=== PATIENT | female | born 2000 | race Caucasian/White ===

== ENCOUNTER 2020-10-04 17:34 | Emergency (ER) | payer OTHER ==
[2020-10-04 17:47] VITALS: BMI 23.4
[2020-10-04] MEDS ORDERED: ACETAMINOPHEN 1000 MG/100 ML BAG IVPB ONE (18:50)
[2020-10-04] MEDS ORDERED: SODIUM CHLORIDE 1,000 ML IV STA (18:50)
[2020-10-04] MEDS ORDERED: ACETAMINOPHEN INJECTION 100 ML IVPB ONE (19:26)
[2020-10-04 19:48] VITALS: TEMP 98.9
[2020-10-04 20:03] LABS: BASO % 0.2 % (0-2.0); EOS % 0.7 % (0-4.5); HEMATOCRIT 38.8 % (32.4-45.2); HEMOGLOBIN 13.4 GM/dL (10.7-15.3); LYMPH % 32.7 % (8-40); MCH 30.9 pg (25.7-33.7); MCHC 34.5 g/dl (32.0-36.0); MEAN CELL VOLUME 89.5 fl (80-96); MEAN PLT VOLUME 9.3 fl (7.5-11.1); MONO % 6.9 % (3.8-10.2); NEUT % 59.5 % (42.8-82.8); PLATELET COUNT 193 K/MM3 (134-434); RBC 4.33 M/mm3 (3.60-5.2); RDW 12.4 % (11.6-15.6)
[2020-10-04 20:26] LABS: PH,URINE >= 9.0 (5.0-8.0); URINE APPEARANCE CLOUDY; URINE BILIRUBIN NEGATIVE (NEGATIVE); URINE COLOR YELLOW; URINE GLUCOSE (UA) NEGATIVE (NEGATIVE); URINE KETONE NEGATIVE (NEGATIVE); URINE LEUK ESTERASE NEGATIVE (NEGATIVE); URINE NITRITE NEGATIVE (NEGATIVE); URINE PROTEIN NEGATIVE (NEGATIVE)
[2020-10-04 20:33] LABS: ALBUMIN 3.9 g/dl (3.4-5.0); BLOOD UREA NITROGEN 10.2 mg/dL (7-18); CALCIUM 8.8 mg/dL (8.5-10.1)
[2020-10-04 20:36] LABS: HCG,QUALITATIVE URINE Negative
[2020-10-04 20:37] LABS: BILIRUBIN,TOTAL 0.8 mg/dL (0.2-1); CREATININE 0.7 mg/dL (0.55-1.3); TOT PROT 7.1 g/dl (6.4-8.2)
[2020-10-04 22:31] VITALS: BP 98/64; PULSE 81
== END 2020-10-04 22:32 | disposition home or self-care (01) ==
LOC: JER 17:34
PROC: 3E033GC Introduction of Other Therapeutic Substance into Peripheral Vein, Percutaneous Approach (ICD-10-PCS; principal; 2020-10-04)
PROC: 3E0337Z Introduction of Electrolytic and Water Balance Substance into Peripheral Vein, Percutaneous Approach (ICD-10-PCS; principal; 2020-10-04)
DX: N83.201 Unspecified ovarian cyst, right side (principal)
CPT/HCPCS: 36415; 74177-TC; 80053; 81003; 84703; 85025; 87086; 99285-25; J0131; Q9967

== ENCOUNTER 2020-10-15 10:08 | Emergency (ER) | payer OTHER ==
[2020-10-15 10:18] VITALS: BP 103/77; PULSE 99; TEMP 98; BMI 23.4
[2020-10-15 10:57] LABS: BASO % 0.3 % (0-2.0); EOS % 0.5 % (0-4.5); HEMATOCRIT 40.2 % (32.4-45.2); HEMOGLOBIN 13.8 GM/dL (10.7-15.3); LYMPH % 24.9 % (8-40); MCH 31.2 pg (25.7-33.7); MCHC 34.3 g/dl (32.0-36.0); MEAN CELL VOLUME 90.9 fl (80-96); MEAN PLT VOLUME 9.6 fl (7.5-11.1); NEUT % 68.3 % (42.8-82.8); PLATELET COUNT 185 K/MM3 (134-434); RBC 4.42 M/mm3 (3.60-5.2); WHITE BLOOD COUNT 7.8 K/mm3 (4.0-10.0)
[2020-10-15 11:20] LABS: INR 1.05 (0.83-1.09); PROTHROMBIN TIME (PATIENT) 12.9 SEC (9.7-13.0)
== END 2020-10-15 11:35 | disposition home or self-care (01) ==
LOC: JER 10:08
DX: K62.5 Hemorrhage of anus and rectum (principal)
CPT/HCPCS: 36415; 82272; 85025; 85610; 85730; 99283-25

== ENCOUNTER 2021-02-19 09:34 | Emergency (ER) | payer OTHER ==
[2021-02-19 09:49] VITALS: BP 103/67; PULSE 104; TEMP 98.1; BMI 22.6
== END 2021-02-19 10:12 | disposition home or self-care (01) ==
LOC: JERFT 09:34
DX: B00.1 Herpesviral vesicular dermatitis (principal)
CPT/HCPCS: 99283-25

== ENCOUNTER 2021-05-17 00:53 | Emergency (ER) | payer OTHER ==
[2021-05-17 01:02] VITALS: TEMP 98.1; BMI 23.2
[2021-05-17] MEDS ORDERED: ONDANSETRON 4 MG/2 ML VIAL IVPUSH ONE (01:29)
[2021-05-17] MEDS ORDERED: FAMOTIDINE 20 MG/50 ML IVPB 20 MG/50 ML MG IVPB ONE ×2 (01:29→01:32)
[2021-05-17] MEDS ORDERED: SODIUM CHLORIDE 0.9% 500 ML INFUS.BAG IV ONE (01:29)
[2021-05-17] MEDS ORDERED: ONDANSETRON 4 MG/2 ML VIAL ONE (01:32)
[2021-05-17 01:55] LABS: BASO % 0.3 % (0-2.0); EOS % 0.8 % (0-4.5); HEMATOCRIT 39.3 % (32.4-45.2); HEMOGLOBIN 13.5 GM/dL (10.7-15.3); LYMPH % 13.8 % (8-40); MCH 30.7 pg (25.7-33.7); MCHC 34.4 g/dl (32.0-36.0); MEAN CELL VOLUME 89.3 fl (80-96); MEAN PLT VOLUME 9.1 fl (7.5-11.1); MONO % 4.6 % (3.8-10.2); NEUT % 80.5 % (42.8-82.8); PLATELET COUNT 170 10^3/uL (134-434); RDW 12.7 % (11.6-15.6); WHITE BLOOD COUNT 8.1 K/mm3 (4.0-10.0)
[2021-05-17 01:59] LABS: EPI CELLS 4 /uL (0-25.1); HYALINE CASTS 0 /uL (0-3.1); URINE APPEARANCE CLOUDY; URINE BACTERIA 85 /uL (0-1359); URINE BILIRUBIN NEGATIVE (NEGATIVE); URINE COLOR YELLOW; URINE GLUCOSE (UA) NEGATIVE (NEGATIVE); URINE KETONE NEGATIVE (NEGATIVE); URINE LEUK ESTERASE NEGATIVE (NEGATIVE); URINE NITRITE NEGATIVE (NEGATIVE); URINE PROTEIN NEGATIVE (NEGATIVE); URINE RBC 13 /uL (0-23.9); URINE UROBILINOGEN 0.2 mg/dL (0.2-1.0); URINE WBC 3 /uL (0-25.8)
[2021-05-17 02:17] LABS: ALBUMIN 3.4 g/dl (3.4-5.0); BLOOD UREA NITROGEN 14.6 mg/dL (7-18); CALCIUM 8.8 mg/dL (8.5-10.1)
[2021-05-17 02:21] LABS: CREATININE 0.8 mg/dL (0.55-1.3)
[2021-05-17 02:22] LABS: BILIRUBIN,TOTAL 0.8 mg/dL (0.2-1); TOT PROT 6.9 g/dl (6.4-8.2)
[2021-05-17 02:58] VITALS: BP 100/71; PULSE 89
== END 2021-05-17 03:16 | disposition home or self-care (01) ==
LOC: JER 00:53
PROC: 3E033NZ Introduction of Analgesics, Hypnotics, Sedatives into Peripheral Vein, Percutaneous Approach (ICD-10-PCS; principal; 2021-05-17)
PROC: 3E033GC Introduction of Other Therapeutic Substance into Peripheral Vein, Percutaneous Approach (ICD-10-PCS; 2021-05-17)
DX: R11.10 Vomiting, unspecified (principal); R19.7 Diarrhea, unspecified
CPT/HCPCS: 36415; 80053; 81003; 84703; 85025; 87086; 99284-25; C9803; U0003; U0005

== ENCOUNTER 2021-07-19 08:40 | Emergency (ER) | payer OTHER ==
[2021-07-19 09:31] VITALS: BP 104/60; PULSE 110; TEMP 98.5; BMI 23.2
[2021-07-19] MEDS ORDERED: SODIUM CHLORIDE 1,000 ML IV STA (09:48)
[2021-07-19] MEDS ORDERED: FAMOTIDINE 20 MG/50 ML IVPB 20 MG/50 ML MG IVPB ONE ×2 (09:48→09:57)
[2021-07-19] MEDS ORDERED: METOCLOPRAMIDE HCL INJECTION 10 MG/2 ML VIAL IVPB ONE (09:48)
[2021-07-19] MEDS ORDERED: MAG HYDROX/AL HYDROX/SIMETH 30 ML UNIT-DOSE CUP PO ONE (09:48)
[2021-07-19] MEDS ORDERED: METOCLOPRAMIDE HCL INJECTION 10 MG/2 ML VIAL ONE (09:59)
[2021-07-19] MEDS ORDERED: MAG HYDROX/AL HYDROX/SIMETH 30 ML UNIT-DOSE CUP ONE (09:59)
[2021-07-19 10:31] LABS: BASO % 0.2 % (0-2.0); HEMATOCRIT 43.1 % (32.4-45.2); HEMOGLOBIN 14.5 GM/dL (10.7-15.3); LYMPH % 7.1 % (8-40); MCH 30.3 pg (25.7-33.7); MCHC 33.7 g/dl (32.0-36.0); MEAN CELL VOLUME 89.9 fl (80-96); MEAN PLT VOLUME 8.9 fl (7.5-11.1); MONO % 5.2 % (3.8-10.2); NEUT % 86.5 % (42.8-82.8); PLATELET COUNT 178 10^3/uL (134-434); RBC 4.79 M/mm3 (3.60-5.2); RDW 12.4 % (11.6-15.6); WHITE BLOOD COUNT 9.3 K/mm3 (4.0-10.0)
[2021-07-19 10:41] LABS: ALBUMIN 3.9 g/dl (3.4-5.0)
[2021-07-19 10:45] LABS: CREATININE 0.7 mg/dL (0.55-1.3)
[2021-07-19 10:46] LABS: BILIRUBIN,TOTAL 1.3 mg/dL (0.2-1); TOT PROT 7.4 g/dl (6.4-8.2)
== END 2021-07-19 13:39 | disposition home or self-care (01) ==
LOC: JER 08:40
PROC: 3E033GC Introduction of Other Therapeutic Substance into Peripheral Vein, Percutaneous Approach (ICD-10-PCS; principal; 2021-07-19)
DX: K52.9 Noninfective gastroenteritis and colitis, unspecified (principal)
CPT/HCPCS: 36415; 80053; 84703; 85025; 99284-25; C9803; U0003; U0005

== ENCOUNTER 2021-09-19 07:18 | Emergency (ER) | payer OTHER ==
[2021-09-19 08:29] VITALS: BP 103/67; PULSE 82; TEMP 98.2; BMI 22.3
== END 2021-09-19 09:19 | disposition home or self-care (01) ==
LOC: JER 07:18
DX: H43.391 Other vitreous opacities, right eye (principal)
CPT/HCPCS: 99281-25

== ENCOUNTER 2022-01-25 04:13 | Emergency (ER) | payer OTHER ==
[2022-01-25 04:21] VITALS: BMI 23.6
[2022-01-25 06:06] LABS: BASO % 0.3 % (0-2.0); EOS % 1.8 % (0-4.5); HEMATOCRIT 39.2 % (32.4-45.2); HEMOGLOBIN 13.3 GM/dL (10.7-15.3); LYMPH % 31.6 % (8-40); MCH 30.9 pg (25.7-33.7); MCHC 33.9 g/dl (32.0-36.0); MEAN CELL VOLUME 91.3 fl (80-96); MEAN PLT VOLUME 10.6 fl (7.5-11.1); MONO % 8.9 % (3.8-10.2); NEUT % 57.4 % (42.8-82.8); PLATELET COUNT 163 10^3/uL (134-434); RDW 12.5 % (11.6-15.6); WHITE BLOOD COUNT 6.4 K/mm3 (4.0-10.0)
[2022-01-25 06:27] LABS: CHLORIDE 111 mmol/L (98-107); SODIUM 143 mmol/L (136-145)
[2022-01-25 06:29] LABS: CALCIUM 8.4 mg/dL (8.5-10.1)
[2022-01-25 06:30] LABS: ALBUMIN 3.7 g/dl (3.4-5.0); ANION GAP 6 MMOL/L (8-16); BLOOD UREA NITROGEN 16.9 mg/dL (7-18); CO2 26 mmol/L (21-32); GLUCOSE,RANDOM 89 mg/dL (74-106)
[2022-01-25 06:33] LABS: CREATININE 0.7 mg/dL (0.55-1.3); SGPT/ALT 19 U/L (13-61)
[2022-01-25 06:47] LABS: ALK PHOS 69 U/L (45-117); BILIRUBIN,TOTAL 0.7 mg/dL (0.2-1); SGOT/AST 14 U/L (15-37); TOT PROT 6.9 g/dl (6.4-8.2)
[2022-01-25 08:36] LABS: EPI CELLS 1 /uL (0-25.1); HYALINE CASTS 3 /uL (0-3.1); PH,URINE 5.5 (5.0-8.0); URINE APPEARANCE CLOUDY; URINE BILIRUBIN 1+ (NEGATIVE); URINE COLOR RED; URINE GLUCOSE (UA) NEGATIVE (NEGATIVE); URINE KETONE NEGATIVE (NEGATIVE); URINE LEUK ESTERASE 2+ (NEGATIVE); URINE NITRITE POSITIVE (NEGATIVE); URINE PROTEIN 4+ (NEGATIVE); URINE RBC 8 /uL (0-23.9); URINE UROBILINOGEN 0.2 mg/dL (0.2-1.0); URINE WBC 2 /uL (0-25.8)
[2022-01-25 08:54] LABS: URINE BACTERIA 604.5 /uL (0-1359)
[2022-01-25 09:05] VITALS: BP 107/61; PULSE 76; TEMP 98.2
== END 2022-01-25 09:05 | disposition home or self-care (01) ==
LOC: JER 04:13
DX: N30.90 Cystitis, unspecified without hematuria (principal)
CPT/HCPCS: 36415; 80053; 81003; 84702; 85025; 86850; 86900; 86901; 87086; 99284-25

== ENCOUNTER 2022-01-27 00:25 | Emergency (ER) | payer OTHER ==
[2022-01-27 00:39] VITALS: BP 121/71; PULSE 61; TEMP 98; BMI 23.6
[2022-01-27] MEDS ORDERED: CEPHALEXIN MONOHYDRATE 500 MG CAPSULE (UD) PO ONE (01:59)
[2022-01-27 03:18] LABS: EPI CELLS 10 /uL (0-25.1); HYALINE CASTS 0 /uL (0-3.1); PH,URINE 7.5 (5.0-8.0); URINE APPEARANCE CLEAR; URINE BACTERIA 184 /uL (0-1359); URINE BILIRUBIN NEGATIVE (NEGATIVE); URINE COLOR YELLOW; URINE GLUCOSE (UA) NEGATIVE (NEGATIVE); URINE KETONE NEGATIVE (NEGATIVE); URINE LEUK ESTERASE NEGATIVE (NEGATIVE); URINE NITRITE NEGATIVE (NEGATIVE); URINE PROTEIN NEGATIVE (NEGATIVE); URINE RBC 6 /uL (0-23.9); URINE WBC 3 /uL (0-25.8)
[2022-01-27] MEDS ORDERED: CEPHALEXIN MONOHYDRATE 500 MG CAPSULE (UD) ONE (03:43)
== END 2022-01-27 04:01 | disposition home or self-care (01) ==
LOC: JER 00:25
DX: N39.0 Urinary tract infection, site not specified (principal)
CPT/HCPCS: 81003; 99283-25

== ENCOUNTER 2022-05-16 13:59 | Observation (INO) | payer OTHER ==
[2022-05-16 14:16] VITALS: BMI 23.4
[2022-05-16] MEDS ORDERED: SODIUM CHLORIDE 0.9% 500 ML INFUS.BAG IV ONE ×2 (15:27→16:33)
[2022-05-16 16:22] LABS: URINE APPEARANCE TURBID; URINE BILIRUBIN MODERATE (NEGATIVE); URINE COLOR RED; URINE GLUCOSE (UA) NEGATIVE (NEGATIVE); URINE KETONE 80 (NEGATIVE)
[2022-05-16 16:23] LABS: EPI CELLS 22.8 /uL (0-25.1); HYALINE CASTS 455.3 /uL (0-3.1); URINE BACTERIA 1441.9 /uL (0-1359); URINE LEUK ESTERASE 3+ (NEGATIVE); URINE NITRITE POSITIVE (NEGATIVE); URINE PROTEIN 300 (NEGATIVE); URINE RBC 19913.5 /uL (0-23.9); URINE WBC 918.2 /uL (0-25.8)
[2022-05-16 16:51] LABS: URINE BARBITURATES NEGATIVE (NEGATIVE)
[2022-05-16 16:53] LABS: COCAINE, UR NEGATIVE (NEGATIVE); METHADONE, UR NEGATIVE (NEGATIVE); OPIATES, URI NEGATIVE (NEGATIVE); PHENCYCLIDINE,URINE NEGATIVE (NEGATIVE); URINE AMPHETAMINES NEGATIVE (NEGATIVE); URINE BENZODIAZEPINES NEGATIVE (NEGATIVE)
[2022-05-16] MEDS ORDERED: CEFTRIAXONE 1,000 MG in DEXTROSE 5%-WATER - 50 ML IVPB ONE (17:19)
[2022-05-16] MEDS ORDERED: MECLIZINE HCL 25 MG TABLET (FP) PO ONE (17:19)
[2022-05-16] MEDS ORDERED: CEFTRIAXONE 1 GM/50 ML BAG ONE (17:23)
[2022-05-16] MEDS ORDERED: MECLIZINE HCL 25 MG TABLET (FP) ONE (17:23)
[2022-05-16 18:59] LABS: BASO % 0.1 % (0-2.0); EOS % 0.1 % (0-4.5); HEMOGLOBIN 12.6 GM/dL (10.7-15.3); LYMPH % 9.1 % (8-40); MCH 30.3 pg (25.7-33.7); MCHC 33.1 g/dl (32.0-36.0); MEAN CELL VOLUME 91.5 fl (80-96); MEAN PLT VOLUME 8.6 fl (7.5-11.1); MONO % 5.3 % (3.8-10.2); NEUT % 85.4 % (42.8-82.8); PLATELET COUNT 183 10^3/uL (134-434); RBC 4.15 M/mm3 (3.60-5.2); RDW 12.4 % (11.6-15.6); WHITE BLOOD COUNT 10.2 K/mm3 (4.0-10.0)
[2022-05-16 19:20] LABS: CHLORIDE 110 mmol/L (98-107); SODIUM 143 mmol/L (136-145)
[2022-05-16 19:22] LABS: ALBUMIN 3.2 g/dl (3.4-5.0); ANION GAP 8 MMOL/L (8-16); BLOOD UREA NITROGEN 15.6 mg/dL (7-18); CALCIUM 7.9 mg/dL (8.5-10.1); CO2 25 mmol/L (21-32); GLUCOSE,RANDOM 130 mg/dL (74-106)
[2022-05-16 19:24] LABS: CREATININE 0.8 mg/dL (0.55-1.3); SGOT/AST 8 U/L (15-37); SGPT/ALT 15 U/L (13-61)
[2022-05-16 19:27] LABS: BILIRUBIN,TOTAL 0.9 mg/dL (0.2-1)
[2022-05-16 19:28] LABS: ALK PHOS 48 U/L (45-117); TOT PROT 5.8 g/dl (6.4-8.2)
[2022-05-16] MEDS ORDERED: CEFTRIAXONE 1 GM in DEXTROSE 5%-WATER - 50 ML IVPB ONE (23:40)
[2022-05-17] MEDS ORDERED: CEFTRIAXONE 1 GM/50 ML BAG ONE (00:43)
[2022-05-17] MEDS ORDERED: SODIUM CHLORIDE 1,000 ML IV SCH (01:15)
[2022-05-17 06:23] LABS: BASO % 0.2 % (0-2.0); HEMATOCRIT 37.8 % (32.4-45.2); HEMOGLOBIN 12.5 GM/dL (10.7-15.3); LYMPH % 24.4 % (8-40); MCH 30.2 pg (25.7-33.7); MCHC 33.1 g/dl (32.0-36.0); MEAN CELL VOLUME 91.4 fl (80-96); MEAN PLT VOLUME 8.6 fl (7.5-11.1); MONO % 8.1 % (3.8-10.2); NEUT % 65.3 % (42.8-82.8); PLATELET COUNT 189 10^3/uL (134-434); RBC 4.14 M/mm3 (3.60-5.2); RDW 12.5 % (11.6-15.6); WHITE BLOOD COUNT 8.4 K/mm3 (4.0-10.0)
[2022-05-17 06:41] LABS: CALCIUM 8.1 mg/dL (8.5-10.1)
[2022-05-17 06:42] LABS: ALBUMIN 3.1 g/dl (3.4-5.0); BLOOD UREA NITROGEN 19.7 mg/dL (7-18); MAGNESIUM 1.8 mg/dL (1.8-2.4)
[2022-05-17 06:45] LABS: CREATININE 0.7 mg/dL (0.55-1.3); PHOSPHOROUS 3.9 mg/dL (2.5-4.9)
[2022-05-17 06:46] LABS: BILIRUBIN,TOTAL 0.6 mg/dL (0.2-1); TOT PROT 5.8 g/dl (6.4-8.2)
[2022-05-17] MEDS: INSULIN SLIDING SCALE (NOVOLOG) 1 VIAL SQ SCH ×3 (08:13→17:13)
[2022-05-17] MEDS ORDERED: CEFTRIAXONE 1 GM in DEXTROSE 5%-WATER - 50 ML IVPB ONE ×2 (10:00→10:04)
[2022-05-17] MEDS ORDERED: ENOXAPARIN NA (PORCINE) 40 MG/0.4 ML DISP.SYRIN SQ SCH (10:00)
[2022-05-17 13:47] VITALS: RESP 15
[2022-05-17 18:29] VITALS: BP 109/63; PULSE 81; TEMP 97.4
== END 2022-05-17 18:44 | disposition home or self-care (01) ==
LOC: JER 13:59 → JERBED 22:24 → UNDOADMOB 22:24 → INTOOBSV 05-17 01:07 → OBSVTOIN 05-17 01:07 → J8W 05-17 06:33 → JERBED 05-17 06:33 → J8W 05-17 10:01 → JERBED 05-17 10:01
PROVIDERS: ADMIT Internal Medicine; ATTEND Nurse Practitioner Acute Care
PROC: 3E03329 Introduction of Other Anti-infective into Peripheral Vein, Percutaneous Approach (ICD-10-PCS; principal; 2022-05-17)
PROC: 3E023GC Introduction of Other Therapeutic Substance into Muscle, Percutaneous Approach (ICD-10-PCS; 2022-05-17)
PROC: 3E0337Z Introduction of Electrolytic and Water Balance Substance into Peripheral Vein, Percutaneous Approach (ICD-10-PCS; 2022-05-17)
DX: F31.9 Bipolar disorder, unspecified (principal); N39.0 Urinary tract infection, site not specified; R42 Dizziness and giddiness; R44.3 Hallucinations, unspecified; R73.9 Hyperglycemia, unspecified; Z91.199 Patient's noncompliance with other medical treatment and regimen due to unspecified reason
CPT/HCPCS: 36415; 70450-TC; 80053; 80307; 81003; 83036; 83735; 84100; 84443; 84702; 85025; 87086; 93005; 93010; 96361; 96365; 96372; 96375; 97116-GP; 97161-GP; 99285-25; C9803-CS; G0378; U0003; U0005

== ENCOUNTER 2022-08-21 23:56 | Emergency (ER) | payer OTHER ==
[2022-08-22 00:05] VITALS: BP 107/65; PULSE 106; RESP 17; BMI 22.1
[2022-08-22 00:06] VITALS: TEMP 98.4
[2022-08-22 00:45] LABS: URINE APPEARANCE CLOUDY; URINE BILIRUBIN NEGATIVE (NEGATIVE); URINE COLOR YELLOW; URINE GLUCOSE (UA) NEGATIVE (NEGATIVE); URINE KETONE NEGATIVE (NEGATIVE); URINE LEUK ESTERASE NEGATIVE (NEGATIVE); URINE NITRITE NEGATIVE (NEGATIVE); URINE PROTEIN NEGATIVE (NEGATIVE); URINE UROBILINOGEN 0.2 mg/dL (0.2-1.0)
[2022-08-22 01:23] LABS: HCG,QUALITATIVE URINE NEGATIVE
[2022-08-22] MEDS ORDERED: SODIUM CHLORIDE 0.9% 500 ML INFUS.BAG IV ONE (01:59)
[2022-08-22 02:13] LABS: BASO % 0.3 % (0-2.0); EOS % 0.3 % (0-4.5); HEMATOCRIT 39.7 % (32.4-45.2); HEMOGLOBIN 13.2 GM/dL (10.7-15.3); LYMPH % 12.7 % (8-40); MCH 29.9 pg (25.7-33.7); MCHC 33.3 g/dl (32.0-36.0); MEAN CELL VOLUME 89.8 fl (80-96); MEAN PLT VOLUME 8.4 fl (7.5-11.1); NEUT % 80.7 % (42.8-82.8); PLATELET COUNT 196 10^3/uL (134-434); RBC 4.42 M/mm3 (3.60-5.2); RDW 12.7 % (11.6-15.6); WHITE BLOOD COUNT 9.1 K/mm3 (4.0-10.0)
[2022-08-22 02:50] LABS: CALCIUM 8.9 mg/dL (8.5-10.1)
[2022-08-22 02:51] LABS: ALBUMIN 3.9 g/dl (3.4-5.0); BLOOD UREA NITROGEN 12.4 mg/dL (7-18)
[2022-08-22 02:54] LABS: CREATININE 0.6 mg/dL (0.55-1.3)
[2022-08-22 02:55] LABS: TOT PROT 6.9 g/dl (6.4-8.2)
[2022-08-22 02:56] LABS: BILIRUBIN,TOTAL 0.5 mg/dL (0.2-1)
== END 2022-08-22 03:43 | disposition home or self-care (01) ==
LOC: JER 23:56
DX: R42 Dizziness and giddiness (principal)
CPT/HCPCS: 36415; 70450-TC; 80053; 81003; 82962; 84703; 85025; 87086; 93005; 93010; 99285-25

== ENCOUNTER 2022-09-27 20:40 | Emergency (ER) | payer OTHER ==
[2022-09-27 20:59] VITALS: TEMP 98.4; BMI 22.3
[2022-09-27] MEDS ORDERED: ONDANSETRON *ODT* 4 MG TABLET SL ONE (21:59)
[2022-09-27] MEDS ORDERED: FAMOTIDINE 10 MG TABLET PO ONE (21:59)
[2022-09-27] MEDS ORDERED: MAG HYDROX/AL HYDROX/SIMETH 30 ML UNIT-DOSE CUP PO ONE (21:59)
[2022-09-27] MEDS ORDERED: ONDANSETRON *ODT* 4 MG TABLET ONE (22:04)
[2022-09-27] MEDS ORDERED: MAG HYDROX/AL HYDROX/SIMETH 30 ML UNIT-DOSE CUP ONE (22:05)
[2022-09-27] MEDS ORDERED: ACETAMINOPHEN 325 MG TABLET (FP) ONE ×2 (22:21→22:34)
[2022-09-27] MEDS: ACETAMINOPHEN 500 MG TABLET (FP) PO ONE ×2 (22:25→22:57)
[2022-09-27 22:46] LABS: EPI CELLS >36 /uL (0-25.1); HYALINE CASTS 14 /uL (0-3.1); URINE APPEARANCE CLOUDY; URINE BACTERIA 5050 /uL (0-1359); URINE BILIRUBIN NEGATIVE (NEGATIVE); URINE COLOR YELLOW; URINE GLUCOSE (UA) NEGATIVE (NEGATIVE); URINE KETONE 1+ (NEGATIVE); URINE LEUK ESTERASE 1+ (NEGATIVE); URINE NITRITE NEGATIVE (NEGATIVE); URINE PROTEIN TRACE (NEGATIVE); URINE UROBILINOGEN 0.2 mg/dL (0.2-1.0); URINE WBC 263 /uL (0-25.8)
[2022-09-27 22:59] LABS: HCG,QUALITATIVE URINE Negative
[2022-09-27 23:56] VITALS: BP 110/60; PULSE 78; RESP 14
[2022-09-28 04:34] LABS: URINE RBC 43.8 /uL (0-23.9); YEAST MANY (NEGATIVE)
== END 2022-09-27 23:56 | disposition home or self-care (01) ==
LOC: JER 20:40
DX: R10.13 Epigastric pain (principal); R19.7 Diarrhea, unspecified
CPT/HCPCS: 81003; 84703; 87086; 99283-25; Q0162

== ENCOUNTER 2022-10-20 04:31 | Emergency (ER) | payer OTHER ==
[2022-10-20 04:42] VITALS: BMI 22.1
[2022-10-20 05:20] LABS: PH,URINE 7.5 (5.0-8.0); URINE APPEARANCE CLEAR; URINE BILIRUBIN NEGATIVE (NEGATIVE); URINE COLOR YELLOW; URINE GLUCOSE (UA) NEGATIVE (NEGATIVE); URINE KETONE NEGATIVE (NEGATIVE); URINE LEUK ESTERASE NEGATIVE (NEGATIVE); URINE NITRITE NEGATIVE (NEGATIVE); URINE PROTEIN NEGATIVE (NEGATIVE)
[2022-10-20 05:26] LABS: HCG,QUALITATIVE URINE Negative
[2022-10-20 10:11] VITALS: RESP 18; TEMP 99.1
[2022-10-20 10:39] VITALS: BP 100/61; PULSE 91
== END 2022-10-20 10:39 | disposition home or self-care (01) ==
LOC: JER 04:31
DX: R35.0 Frequency of micturition (principal); R00.2 Palpitations
CPT/HCPCS: 36415; 76830-TC; 81003; 82962; 84703; 87086; 87491; 87591; 93005; 93010; 99285-25

== ENCOUNTER 2022-12-03 15:54 | Emergency (ER) | payer OTHER ==
[2022-12-03 16:03] VITALS: BP 115/64; PULSE 92; RESP 20; TEMP 98; BMI 20.1
[2022-12-03 18:31] LABS: PH,URINE 7.5 (5.0-8.0); URINE APPEARANCE CLEAR; URINE BILIRUBIN NEGATIVE (NEGATIVE); URINE COLOR YELLOW; URINE GLUCOSE (UA) NEGATIVE (NEGATIVE); URINE KETONE NEGATIVE (NEGATIVE); URINE LEUK ESTERASE NEGATIVE (NEGATIVE); URINE NITRITE NEGATIVE (NEGATIVE); URINE PROTEIN NEGATIVE (NEGATIVE)
== END 2022-12-03 18:52 | disposition home or self-care (01) ==
LOC: JERFT 15:54
DX: R10.32 Left lower quadrant pain (principal); R35.0 Frequency of micturition
CPT/HCPCS: 81003; 84703; 87086; 99283-25

== ENCOUNTER 2023-02-06 14:24 | Emergency (ER) | payer OTHER ==
[2023-02-06 14:33] VITALS: BP 107/69; PULSE 95; RESP 16; TEMP 98.1; BMI 24.5
[2023-02-06] MEDS ORDERED: SODIUM CHLORIDE 1,000 ML IV STA (15:18)
[2023-02-06 16:13] LABS: BASO % 0.3 % (0-2.0); EOS % 1.8 % (0-4.5); HEMATOCRIT 39.5 % (32.4-45.2); HEMOGLOBIN 13.3 GM/dL (10.7-15.3); LYMPH % 30.6 % (8-40); MCH 30.3 pg (25.7-33.7); MCHC 33.6 g/dl (32.0-36.0); MEAN CELL VOLUME 90.2 fl (80-96); MEAN PLT VOLUME 9.7 fl (7.5-11.1); MONO % 7.4 % (3.8-10.2); NEUT % 59.9 % (42.8-82.8); PLATELET COUNT 173 10^3/uL (134-434); RBC 4.38 M/mm3 (3.60-5.2); RDW 11.8 % (11.6-15.6); WHITE BLOOD COUNT 5.9 K/mm3 (4.0-10.0)
[2023-02-06 16:16] LABS: PH,URINE 5.5 (5.0-8.0); URINE APPEARANCE CLEAR; URINE BILIRUBIN NEGATIVE (NEGATIVE); URINE COLOR YELLOW; URINE GLUCOSE (UA) NEGATIVE (NEGATIVE); URINE KETONE 1+ (NEGATIVE); URINE LEUK ESTERASE NEGATIVE (NEGATIVE); URINE NITRITE NEGATIVE (NEGATIVE); URINE PROTEIN NEGATIVE (NEGATIVE); URINE UROBILINOGEN 0.2 mg/dL (0.2-1.0)
[2023-02-06 16:19] LABS: HCG,QUALITATIVE URINE Negative
[2023-02-06 16:27] LABS: POTASSIUM 3.8 mmol/L (3.5-5.1)
[2023-02-06 16:29] LABS: BLOOD UREA NITROGEN 10.8 mg/dL (7-18)
[2023-02-06 16:30] LABS: ALBUMIN 3.9 g/dl (3.4-5.0)
[2023-02-06 16:32] LABS: CREATININE 0.6 mg/dL (0.55-1.3)
[2023-02-06 16:34] LABS: TOT PROT 6.9 g/dl (6.4-8.2)
== END 2023-02-06 18:00 | disposition home or self-care (01) ==
LOC: JER 14:24
PROC: 3E0337Z Introduction of Electrolytic and Water Balance Substance into Peripheral Vein, Percutaneous Approach (ICD-10-PCS; principal; 2023-02-06)
DX: R10.31 Right lower quadrant pain (principal)
CPT/HCPCS: 36415; 74177-TC; 80053; 81003; 84703; 85025; 87086; 99285-25; Q9967

== ENCOUNTER 2023-04-29 11:25 | Emergency (ER) | payer OTHER ==
[2023-04-29 12:20] VITALS: BP 97/65; PULSE 77; RESP 18; TEMP 98.5; BMI 21.9
[2023-04-29] MEDS ORDERED: DEXAMETHASONE LIQUID 0.5 MG/5 ML PO ONE (14:57)
[2023-04-29] MEDS ORDERED: DEXAMETHASONE SOD PHOSPHATE 10 MG/1 ML VIAL ONE (15:02)
== END 2023-04-29 15:11 | disposition home or self-care (01) ==
LOC: JERFT 11:25
DX: M25.531 Pain in right wrist (principal); M65.4 Radial styloid tenosynovitis [de Quervain]
CPT/HCPCS: 73090-TC-RT-FY; 73110-TC-RT-FY; 73130-TC-RT-FY; 73140-TC-RT-FY; 99283-25